=== PATIENT | female | born 2000 | race Caucasian/White ===

== ENCOUNTER 2021-12-10 11:02 | Emergency (ER) | payer OTHER ==
[~2021-12-10] VITALS: Ht 154.9 cm; Wt 78.0 kg
[2021-12-10 11:37] VITALS: BP 133/100
[2021-12-10 12:24] LABS: CLARITY,URINE CLOUDY (Clear); COLOR,URINE YELLOW (Yellow); GLUCOSE, URINE NEGATIVE (Neg); KETONES,URINE NEGATIVE (Neg); LEUKOCYTE ESTERASE ,URINE SMALL (Neg); NITRITES, URINE NEGATIVE (Neg); OCCULT BLOOD,URINE NEGATIVE (Neg); PH,URINE 6.5 (4.8-8.0); PROTEIN,URINE NEGATIVE (Neg); UA COLLECTION TYPE VOIDED
[2021-12-10 12:25] LABS: URINE HCG NEGATIVE (NEG)
[2021-12-10 12:30] LABS: BACTERIA,URINE FEW /HPF (Neg); MUCUS STRANDS MANY /LPF (Neg); SQUAMOUS EPITHELIAL CELL,UR MANY /LPF (FEW)
[2021-12-10 12:31] LABS: RBC,URINE 0-2 /HPF (0-2)
== END 2021-12-10 13:30 | disposition home or self-care (01) ==
LOC: ER 11:02
DX: R07.9 Chest pain, unspecified (principal); R06.02 Shortness of breath; R10.31 Right lower quadrant pain; F12.10 Cannabis abuse, uncomplicated
CPT/HCPCS: 81001; 81025; 93005; 99284

== ENCOUNTER 2022-12-18 12:14 | Outpatient (CLI) | payer MEDICAID | END 2022-12-18 23:59 | disposition home or self-care (01) | LOC: RAD 12:14 | PROVIDERS: ATTEND Family Medicine | DX: Z34.01 Encounter for supervision of normal first pregnancy, first trimester (principal); N91.2 Amenorrhea, unspecified | CPT/HCPCS: 76801 ==